=== PATIENT | female | born 1985 | race Caucasian/White ===

== ENCOUNTER 2018-01-09 18:13 | Emergency (ER) | payer MEDICAID ==
[~2018-01-09] VITALS: Ht 157.5 cm; Wt 83.9 kg
[~2018-01-09 18:13] MED LIST: IBUP-974 PO
[2018-01-09 18:38] VITALS: BP 124/73
--- NOTE | 2018-01-09 18:42 | NUR ---
PATIENT WHEELCHAIR ASSISTED TO BED 1
--- NOTE | 2018-01-09 19:09 | NUR ---
32 Y/O F BIB FAMILY W/C/O R KNEE PAIN X1DAY. PT DENIES ANYTHING HAPPENING TO THE KNEE, DINIES TRAUMA. PT STATES, "IT JUST HAPPENED OUT OF NOWHERE." PAIN IS "04/08 AND FEELS LIKE A SHARP SENSATION THAT RADIATES UP THE THIGH." SWELLING NOTED TO R KNEE AND LOWER LEG, NON PITTING. PT AAOX4, ON ROOM AIR. NO S/S OF DISTRESS NOTED. SHERIF MACIAS MADE AWARE Addendum: 01/09/18 at 1933 by INÉS DENIES*
[2018-01-09] MEDS ORDERED: IBUPROFEN 800 MG TAB PO ONE (19:35)
[2018-01-09 19:59] LABS: BASOPHILS % (AUTO) 0.5 % (0.0-2.0); EOSINOPHILS # (AUTO) 0.1 K/uL (0-0.4); HEMATOCRIT 43.3 % (36-48); HEMOGLOBIN 14.1 g/dL (12.0-16.0); LYMPHOCYTES # (AUTO) 2.5 K/uL (2.5-16.5); LYMPHOCYTES % (AUTO) 30.8 % (20.5-51.1); MEAN CORPUSCULAR HEMOGLOBIN 29 pg (27-31); MEAN CORPUSCULAR HGB CONC 33 g/dL (33-37); MEAN CORPUSCULAR VOLUME 88.7 fL (80-94); MONOCYTES # (AUTO) 0.5 K/uL (0.8-1.0); MONOCYTES % (AUTO) 6.8 % (1.7-9.3); NEUTROPHILS # (AUTO) 4.9 K/uL (1.8-7.7); NEUTROPHILS % (AUTO) 60.9 % (42.2-75.2); PLATELET COUNT (AUTO) 278 K/uL (140-450); RED BLOOD CELL COUNT(AUTO) 4.89 MIL/uL (4.20-5.40); RED CELL DISTRIBUTION WIDTH 12.9 % (11.6-13.7)
[2018-01-09 21:25] VITALS: BP 121/76
== END 2018-01-09 21:25 | disposition home or self-care (01) ==
LOC: MED 18:13
DX: M13.861 Other specified arthritis, right knee (principal); Z88.0 Allergy status to penicillin; Z88.6 Allergy status to analgesic agent; Z79.899 Other long term (current) drug therapy
CPT/HCPCS: 36415; 73562; 84550; 85025; 99285; Q0092

== ENCOUNTER 2018-05-08 17:38 | Emergency (ER) | payer MEDICAID ==
[~2018-05-08] VITALS: Ht 160 cm; Wt 93.0 kg
[2018-05-08 17:52] VITALS: BP 138/97
--- NOTE | 2018-05-08 18:04 | NUR ---
PT AMBULATED TO BED 12
--- NOTE | 2018-05-08 18:07 | NUR ---
pT C/O R LOWER EXTREMITY REDNESS AND SWELLING X 1 DAY. CMS INTATC, NO OTHER COMPLAINTS. GCS 15, DENIES CP/SOB. hx--denies rx---none
--- NOTE | 2018-05-08 19:04 | NUR ---
pt on stretcher in nad, no complaints
--- NOTE | 2018-05-08 19:12 | NUR ---
report given to kurt carpenter
[2018-05-08] MEDS ORDERED: CLINDAMYCIN 600 MG/4 ML VIAL IM ONE (19:55)
[2018-05-08] MEDS ORDERED: IBUPROFEN 800 MG TAB PO ONE (19:55)
--- NOTE | 2018-05-08 20:24 | NUR ---
Patient discharged with v/s stable. Written and verbal after care instructions given and explained. Patient alert, oriented and verbalized understanding of instructions. Ambulatory with steady gait. All questions addressed prior to discharge. ID band removed. Patient advised to follow up with PMD. Rx of BACTRIM DS, CLINDAMYCIN,, IBUPROFEN given. Patient educated on indication of medication including possible reaction and side effects. Opportunity to ask questions provided and answered.
[2018-05-08 20:25] VITALS: BP 122/82
== END 2018-05-08 20:24 | disposition home or self-care (01) ==
LOC: MED 17:38
DX: L03.115 Cellulitis of right lower limb (principal); Z90.89 Acquired absence of other organs; Z90.49 Acquired absence of other specified parts of digestive tract; Z98.51 Tubal ligation status; Z88.0 Allergy status to penicillin; Z88.5 Allergy status to narcotic agent; Z79.1 Long term (current) use of non-steroidal anti-inflammatories (NSAID)
CPT/HCPCS: 73630; 90471; 90715; 96372; 99284; J3490; Q0092

== ENCOUNTER 2018-08-04 17:46 | Emergency (ER) | payer MEDICAID ==
[~2018-08-04] VITALS: Ht 157.5 cm; Wt 93.4 kg
--- NOTE | 2018-08-04 17:59 | NUR ---
TO LOBBY AMBULATORY A/W BED, TUSHAR PAIZ NOTED
--- NOTE | 2018-08-04 18:35 | NUR ---
PATIENT AMBULATED TO BED 4
--- NOTE | 2018-08-04 18:40 | NUR ---
32Y/F BIB WITH C/O UPPER RONEL ABD PAIN, SINCE FRIDAY WITH NAUSEA, LBM EARLIER TODAY, ACTIVE BS X 4, PAIN UPON TOUCH. PT IS AAOX4, VSS AT THIS TIME, BED DOWN, BERAIL UP X 1, ER MD AWARE AND NOTIFIED OF PT STATUS. PMH: GALLBLADDER REMOVAL, APPENDIX REMOVAL RX: NONE
[2018-08-04] MEDS ORDERED: DICYCLOMINE HCL LIQUID 20 MG, ALUMINUM HYD/MAG/SIMETHICONE 30 ML, LIDOCAINE VISCOUS 2% ... PO ONE ×3 (19:35)
--- NOTE | 2018-08-04 20:08 | NUR ---
PT RETURN FROM CT
[2018-08-04 20:16] LABS: BILIRUBIN,URINE NEGATIVE (NEGATIVE); BLOOD, URINE NEGATIVE (NEGATIVE); COLOR,URINE YELLOW (YELLOW); LEUKOCYTE ESTERASE ,URINE 2+ (NEGATIVE); NITRITE, URINE NEGATIVE (NEGATIVE); UGLUCOSE NEGATIVE (NEGATIVE)
[2018-08-04 20:18] LABS: APPEARANCE,URINE HAZY (CLEAR)
[2018-08-04 20:20] LABS: RBC,URINE 0-5 (RARE) /HPF (0-5)
[2018-08-04 20:23] LABS: BASOPHILS % (AUTO) 0.4 % (0.0-2.0); EOSINOPHILS # (AUTO) 0.1 K/uL (0-0.4); EOSINOPHILS % (AUTO) 0.8 % (0.0-4.0); HEMATOCRIT 43.3 % (36-48); HEMOGLOBIN 14.6 g/dL (12.0-16.0); LYMPHOCYTES # (AUTO) 2.5 K/uL (2.5-16.5); LYMPHOCYTES % (AUTO) 30.2 % (20.5-51.1); MEAN CORPUSCULAR HEMOGLOBIN 30 pg (27-31); MEAN CORPUSCULAR HGB CONC 34 g/dL (33-37); MEAN CORPUSCULAR VOLUME 88.2 fL (80-94); MONOCYTES # (AUTO) 0.5 K/uL (0.8-1.0); MONOCYTES % (AUTO) 6.2 % (1.7-9.3); NEUTROPHILS # (AUTO) 5.1 K/uL (1.8-7.7); NEUTROPHILS % (AUTO) 62.4 % (42.2-75.2); PLATELET COUNT (AUTO) 282 K/uL (140-450); RED BLOOD CELL COUNT(AUTO) 4.91 MIL/uL (4.20-5.40); RED CELL DISTRIBUTION WIDTH 12.9 % (11.6-13.7); WHITE BLOOD COUNT (AUTO) 8.1 K/uL (4.8-10.8)
[2018-08-04 20:31] LABS: ANION GAP 10.5 (8-16); CARBON DIOXIDE 27.9 mmol/L (21-32); CREATININE 0.8 mg/dL (0.6-1.3); POTASSIUM 4.4 mmol/L (3.5-5.1)
[2018-08-04 20:37] LABS: ALBUMIN 3.8 g/dL (3.4-5.0); TOTAL BILIRUBIN 0.3 mg/dL (0.0-1.0)
--- NOTE | 2018-08-04 21:00 | NUR ---
DR. CRAWFORD AT BEDSIDE.
--- NOTE | 2018-08-04 21:05 | NUR ---
Patient discharged with v/s stable. Written and verbal after care instructions given and explained. Patient alert, oriented and verbalized understanding of instructions. Ambulatory with steady gait. All questions addressed prior to discharge. ID band removed. Patient advised to follow up with PMD. Rx of MiraLax, and Cipro given. Patient educated on indication of medication including possible reaction and side effects. Opportunity to ask questions provided and answered.
[2018-08-04 21:08] VITALS: BP 128/72
== END 2018-08-04 21:05 | disposition home or self-care (01) ==
LOC: MED 17:46
DX: N39.0 Urinary tract infection, site not specified (principal); K59.00 Constipation, unspecified; Z90.49 Acquired absence of other specified parts of digestive tract; Z98.890 Other specified postprocedural states; Z88.0 Allergy status to penicillin; Z88.5 Allergy status to narcotic agent; Z79.1 Long term (current) use of non-steroidal anti-inflammatories (NSAID)
CPT/HCPCS: 36415; 80053; 81001; 81025; 83690; 85025; 87086; 99284

== ENCOUNTER 2018-10-04 19:51 | Emergency (ER) | payer MEDICAID ==
[~2018-10-04] VITALS: Ht 157.5 cm; Wt 93.0 kg
[2018-10-04 20:00] VITALS: BP 175/88
--- NOTE | 2018-10-04 20:14 | NUR ---
PT TRIAGED AND SENT TO ER LOBBY
--- NOTE | 2018-10-04 20:56 | NUR ---
PT TAKEN TO BED 6
--- NOTE | 2018-10-04 21:20 | NUR ---
PT C/O HEADACHE 10/10 ACHING X 1 MONTH. DENIES N/V, ADMITS DIARRHEA X 2 DAYS. +BLURRED VISION, +PHOTOSENSITIVITY. DENIES TAKING MEDICATION AT HOME. HX---DENIES
--- NOTE | 2018-10-04 21:29 | NUR ---
Dr. Hughes evaluating patient at bedside.
[2018-10-04] MEDS ORDERED: PROCHLORPERAZINE 10 MG/2 ML VIAL IM ONE (21:35)
[2018-10-04] MEDS ORDERED: diphenhydrAMINE 50 MG/ML VIAL IM ONE (21:35)
--- NOTE | 2018-10-04 21:49 | NUR ---
PT TO CT AT THIS TIME
[2018-10-04 23:00] VITALS: BP 130/72
--- NOTE | 2018-10-04 23:00 | NUR ---
Patient discharged with v/s stable. Written and verbal after care instructions given and explained. Patient alert, oriented and verbalized understanding of instructions. Ambulatory with steady gait. All questions addressed prior to discharge. ID band removed. Patient advised to follow up with PMD. Rx of benadryl, tramadol, compazine given. Patient educated on indication of medication including possible reaction and side effects. Opportunity to ask questions provided and answered.
== END 2018-10-04 23:00 | disposition home or self-care (01) ==
LOC: MED 19:51
DX: R51 Headache (principal); Z88.0 Allergy status to penicillin; Z88.5 Allergy status to narcotic agent; Z79.899 Other long term (current) drug therapy
CPT/HCPCS: 70450; 96372; 99284; J0780; J1200

== ENCOUNTER 2019-01-12 18:15 | Emergency (ER) | payer MEDICAID ==
[~2019-01-12] VITALS: Ht 157.5 cm; Wt 117.9 kg
[2019-01-12 18:46] VITALS: BP 151/88
[2019-01-12] MEDS ORDERED: KETOROLAC 30 MG/ML VIAL IM ONE (19:00)
[2019-01-12] MEDS ORDERED: CLINDAMYCIN 600 MG/4 ML VIAL IM ONE (19:00)
--- NOTE | 2019-01-12 19:00 | NUR ---
33/F PRESENTS TO ED WITH PARTNER, C/O POSSIBLE BUG BITES, NOTICED 2 DAYS AGO PROGRESSIVELY WORSENING. REGIONS OF ERYTHEMA AND SWELLING NOTED ON L CALF AND R ANKLE, PT REPORTS PAIN. DENIES FEVER/CHILLS, N/V. PT AWAKE AND ALERT, SKIN NORMAL WARM AND DRY, RR EVEN AND UNLABORED. DENIES MED HX OR RX.
[2019-01-12 20:05] VITALS: BP 128/64
--- NOTE | 2019-01-12 20:05 | NUR ---
Patient discharged with v/s stable. Written and verbal after care instructions given and explained. Patient alert, oriented and verbalized understanding of instructions. Ambulatory with steady gait. All questions addressed prior to discharge. ID band removed. Patient advised to follow up with PMD. Rx of BACTRIM, IBUPROFEN given. Patient educated on indication of medication including possible reaction and side effects. Opportunity to ask questions provided and answered.
== END 2019-01-12 20:05 | disposition home or self-care (01) ==
LOC: MED 18:15
DX: S90.561A Insect bite (nonvenomous), right ankle, initial encounter (principal); S80.862A Insect bite (nonvenomous), left lower leg, initial encounter; L08.9 Local infection of the skin and subcutaneous tissue, unspecified; Z79.1 Long term (current) use of non-steroidal anti-inflammatories (NSAID); Z88.0 Allergy status to penicillin; Z88.5 Allergy status to narcotic agent; W57.XXXA Bitten or stung by nonvenomous insect and other nonvenomous arthropods, initial encounter; Y93.89 Activity, other specified; Y92.89 Other specified places as the place of occurrence of the external cause; Y99.8 Other external cause status
CPT/HCPCS: 96372; 99283; J1885; J3490

== ENCOUNTER 2019-01-18 17:35 | Emergency (ER) | payer MEDICAID ==
[~2019-01-18] VITALS: Ht 157.5 cm; Wt 93.4 kg
[2019-01-18 17:47] VITALS: BP 136/61
--- NOTE | 2019-01-18 18:11 | NUR ---
GAVE WATER TO PATIENT PER YOSHI ARIAS
--- NOTE | 2019-01-18 18:15 | NUR ---
C/O LEFT KNEE PAIN, SWELLING, WARM AND TENDER TO TOUCH AFTER WAKING UP YESTERDAY. 04/08. ABLE TO AMBULATE BUT IS VERY PAINFUL. DENIES FEVER, CHILLS. DENIES TRAUMA. STATES POSSIBLE BUG BITE, PT IS UNSURE. HX: NONE
[2019-01-18] MEDS ORDERED: KETOROLAC 30 MG/ML VIAL IM ONE (18:20)
[2019-01-18 18:29] LABS: BASOPHILS % (AUTO) 0.6 % (0.0-2.0); EOSINOPHILS # (AUTO) 0.1 K/uL (0-0.4); EOSINOPHILS % (AUTO) 1.2 % (0.0-4.0); HEMATOCRIT 43.9 % (36-48); HEMOGLOBIN 14.8 g/dL (12.0-16.0); LYMPHOCYTES # (AUTO) 2.4 K/uL (2.5-16.5); LYMPHOCYTES % (AUTO) 30.9 % (20.5-51.1); MEAN CORPUSCULAR HEMOGLOBIN 30 pg (27-31); MEAN CORPUSCULAR HGB CONC 34 g/dL (33-37); MEAN CORPUSCULAR VOLUME 87.7 fL (80-94); MONOCYTES # (AUTO) 0.7 K/uL (0.8-1.0); MONOCYTES % (AUTO) 9.1 % (1.7-9.3); NEUTROPHILS # (AUTO) 4.4 K/uL (1.8-7.7); NEUTROPHILS % (AUTO) 58.2 % (42.2-75.2); PLATELET COUNT (AUTO) 314 K/uL (140-450); RED CELL DISTRIBUTION WIDTH 13.4 % (11.6-13.7); WHITE BLOOD COUNT (AUTO) 7.6 K/uL (4.8-10.8)
[2019-01-18] MEDS ORDERED: LIDOCAINE 1% 500 MG/50 ML VIAL INJ SCH (18:30)
[2019-01-18 18:41] LABS: ANION GAP 13.3 (8-16); CARBON DIOXIDE 26.3 mmol/L (21-32); CREATININE 0.9 mg/dL (0.6-1.3); POTASSIUM 4.6 mmol/L (3.5-5.1)
[2019-01-18 18:45] LABS: ALBUMIN 3.8 g/dL (3.4-5.0)
--- NOTE | 2019-01-18 18:52 | NUR ---
YOSHI ALSTON AT BEDSIDE
[2019-01-18 19:00] LABS: URIC ACID 3.8 mg/dL (2.6-7.2)
[2019-01-18 19:01] LABS: TOTAL BILIRUBIN 0.3 mg/dL (0.0-1.0)
[2019-01-18] MEDS ORDERED: LIDOCAINE MPF 1% - 5 mL VIAL 0 ML ONE (19:12)
[2019-01-18] MEDS ORDERED: LIDOCAINE 2% 1000 MG/50 ML VIAL INJ ONE (19:13)
--- NOTE | 2019-01-18 19:13 | NUR ---
REPORT GIVEN TO FITZ DE ANDA. PT IN STABLE CONDITION.
--- NOTE | 2019-01-18 19:15 | NUR ---
YOSHI ALSTON AT BEDSIDE FOR L KNEE ASPIRATION. PER YOSHI, NO ASPIRATE WAS TAKEN.
[2019-01-18 20:47] VITALS: BP 135/86
--- NOTE | 2019-01-18 20:47 | NUR ---
Patient discharged with v/s stable. Written and verbal after care instructions given and explained. Patient alert, oriented and verbalized understanding of instructions. Ambulatory with steady gait. All questions addressed prior to discharge. ID band removed. Patient advised to follow up with PMD. Rx of BACTRIM, IBUPROFEN, BACITRACIN given. Patient educated on indication of medication including possible reaction and side effects. Opportunity to ask questions provided and answered.
== END 2019-01-18 20:47 | disposition home or self-care (01) ==
LOC: MED 17:35
DX: L03.116 Cellulitis of left lower limb (principal); Z79.899 Other long term (current) drug therapy; Z88.0 Allergy status to penicillin; Z88.5 Allergy status to narcotic agent
CPT/HCPCS: 36415; 73562; 80053; 81002; 81025; 84550; 85025; 85651; 86140; 96372; 99284; J1885; J2001; Q0092

== ENCOUNTER 2019-07-09 17:45 | Emergency (ER) | payer MEDICAID ==
[~2019-07-09] VITALS: Ht 157.5 cm; Wt 95.7 kg
[2019-07-09 18:10] VITALS: BP 122/77
--- NOTE | 2019-07-09 18:56 | NUR ---
PT AMBULATED TO ER BED 12
--- NOTE | 2019-07-09 19:15 | NUR ---
33 Y/O FEMALE PRESENTS TO ED, C/O COUGHING X2 DAYS ALONG WITH BODY ACHES AND HEADACHE 7/10 PAIN SCALE. PT STATES HAVING DIFFICULTY BREATHING WHEN COUGHING. DENIES ANY CHEST PAIN. DENIES N/V/D. PT DENIES TAKING ANY MEDICATIONS PRIOR COMING TO ED. PT AT STABLE CONDITION. WILL CONTINUE TO MONITOR.
[2019-07-09] MEDS: KETOROLAC 60 MG/2 ML VIAL IM ONE (19:19)
[2019-07-09 19:25] VITALS: BP 122/77
--- NOTE | 2019-07-09 19:25 | NUR ---
PT DISCHARGED WITH PAPERWORK. EDUCATED PT REGARDING MEDICATIONS AND D/C INSTRUCTIONS. PT VERBALIZED UNDERSTANDING OF TEACHING. TOLD PT TO FOLLOW UP WITH PCP AND WHEN TO RETURN TO ED. PT AT STABLE CONDITION. ALL QUESTIONS ANSWERED.
== END 2019-07-09 19:25 | disposition home or self-care (01) ==
LOC: MED 17:45
DX: B34.9 Viral infection, unspecified (principal); Z79.1 Long term (current) use of non-steroidal anti-inflammatories (NSAID); Z88.0 Allergy status to penicillin; Z88.5 Allergy status to narcotic agent
CPT/HCPCS: 96372; 99283; J1885

== ENCOUNTER 2019-07-13 16:47 | Emergency (ER) | payer MEDICAID ==
[~2019-07-13] VITALS: Ht 157.5 cm; Wt 98.9 kg
[2019-07-13 17:13] VITALS: BP 144/59
[2019-07-13] MEDS: DEXAMETHASONE 10 MG/ML VIAL IM ONE (19:14)
[2019-07-13 19:20] VITALS: BP 138/55
== END 2019-07-13 19:20 | disposition home or self-care (01) ==
LOC: MED 16:47
DX: J04.0 Acute laryngitis (principal); Z79.899 Other long term (current) drug therapy; Z88.0 Allergy status to penicillin; Z88.5 Allergy status to narcotic agent; Z88.8 Allergy status to other drugs, medicaments and biological substances
CPT/HCPCS: 87804; 96372; 99283; J1100

== ENCOUNTER 2019-08-10 07:50 | Emergency (ER) | payer MEDICAID ==
[2019-08-10] MEDS ORDERED: DEXAMETHASONE 10 MG/ML VIAL ONE (08:47)
== END 2019-08-10 09:45 | disposition home or self-care (01) ==
LOC: MED 07:50
DX: M75.82 Other shoulder lesions, left shoulder (principal); E66.9 Obesity, unspecified; Z79.899 Other long term (current) drug therapy; Z88.0 Allergy status to penicillin; Z88.5 Allergy status to narcotic agent; Z88.6 Allergy status to analgesic agent
CPT/HCPCS: 73030; 96372; 99284; J1100; Q0092; 99283

== ENCOUNTER 2020-09-19 15:35 | Emergency (ER) | payer MEDICAID ==
[~2020-09-19] VITALS: Ht 157.5 cm; Wt 108.9 kg
[2020-09-19 15:44] VITALS: BP 150/90
[2020-09-19] MEDS: MECLIZINE 25 MG TAB PO ONE (16:21)
[2020-09-19] MEDS: KETOROLAC 60 MG/2 ML VIAL IM ONE (16:21)
[2020-09-19] MEDS ORDERED: IBUP-2213 PO (17:15)
[2020-09-19] MEDS ORDERED: MECL-303 PO (17:15)
== END 2020-09-19 17:20 | disposition home or self-care (01) ==
LOC: MED 15:35
DX: R51.9 Headache, unspecified (principal); R42 Dizziness and giddiness; R11.0 Nausea; Z88.0 Allergy status to penicillin; Z88.5 Allergy status to narcotic agent; Z88.6 Allergy status to analgesic agent
CPT/HCPCS: 81002; 81025; 93005; 96372; 99283; J1885; J8597

== ENCOUNTER 2024-01-25 06:15 | Emergency (ER) | payer SELFPAY ==
[~2024-01-25] VITALS: Ht 157.5 cm; Wt 103.0 kg
[~2024-01-25 06:15] MED LIST changes: +IBUP-2213 PO; +MECL-303 PO
[2024-01-25 06:20] VITALS: BP 145/73; PULSE 82; RESP 18; TEMP 98.1; O2SAT 99
[2024-01-25] MEDS ORDERED: PRED20TA5 PO (07:14)
== END 2024-01-25 07:53 | disposition home or self-care (01) ==
LOC: MED 06:15
DX: R21 Rash and other nonspecific skin eruption (principal); Z79.1 Long term (current) use of non-steroidal anti-inflammatories (NSAID); Z79.899 Other long term (current) drug therapy; Z88.0 Allergy status to penicillin; Z88.5 Allergy status to narcotic agent; Z88.6 Allergy status to analgesic agent
CPT/HCPCS: 81025; 99283